=== PATIENT | female | born 1970 | race Caucasian/White ===

== ENCOUNTER 2018-08-14 10:39 | Emergency (ER) | payer SELFPAY ==
[~2018-08-14] VITALS: Ht 165.1 cm; Wt 88.9 kg
--- OUTSIDE RECORDS SUMMARY | 2018-08-14 10:41 | XMS REPORT | Clinical Summary ---
Author Author [facility] Address Unknown Phone Unavailable Care Team Providers Care Project Construction Assistant Manager Name Role Phone Sangita Mo MD PCP Allergies Comments Active Allergy Reactions Severity Noted Date Sulfa (Sulfonamide 03/19/2018 Antibiotics) Medications End Date Status Medication Sig Dispensed Refills Start Date Active dicyclomine (BENTYL) 10 TAKE 1 2 MG capsule CAPSULE BY 8 MOUTH THREE TIMES A DAY NEEDED Active Problems No known active problems Encounters Care Team Description Date Type Specialty Edmar Pavon MA Abnormal mammogram 04/07/2018 Orders Only Obstetrics and Gynecology Edmar Pavon MA Abnormal mammogram (Primary Dx) 04/07/2018 Orders Only Obstetrics and Gynecology Edmar Pavon MA Abnormal mammogram (Primary Dx) 04/07/2018 Orders Only Obstetrics and Gynecology Gracie Cifuentes MA 03/31/2018 Telephone Obstetrics and Gynecology Kenyatta Kowalski MD Pap smear, low-risk (Primary Dx); Screening mammogram, encounter for; Wellness examination 03/19/2018 Office Visit Obstetrics and Gynecology after 08/13/2017 Family History Medical History Relation Name Comments Lung cancer Father Breast cancer Maternal Aunt Maternal Great Aunt Hypertension Mother Hypertension Sister Relation Name Status Comments Father Maternal Aunt Mother Sister Social History Date Tobacco Use Types Packs/Day Years Used Never Smoker Smokeless Tobacco: Never Used Alcohol Use Drinks/Week oz/Week Comments Yes occasional Sex Assigned at Date Recorded Not on file Industry Job Start Date Occupation Not on file Not on file Not on file Travel End Travel History Travel Start No recent travel history available. Last Filed Vital Signs Time Taken Vital Sign Reading 03/19/2018 10:26 AM CDT Blood Pressure 131/89 03/19/2018 10:26 AM CDT Pulse 97 - Temperature - - Respiratory Rate - - Oxygen Saturation - - Inhaled Oxygen - Concentration 03/19/2018 10:26 AM CDT Weight 89.4 kg (197 lb 3.2 oz) 03/19/2018 10:26 AM CDT Height 165.1 cm (5' 5") 03/19/2018 10:26 AM CDT Body Mass Index 32.82 Plan of Treatment Health Maintenance Due Date Last Done Comments INFLUENZA VACCINE 03/04/2018 CERVICAL CANCER SCREENING 03/19/2021 03/19/2018 Procedures Comments Procedure Name Priority Date/Time Associated Diagnosis THINPREP TIS PAP REFLEX Routine 03/19/2018 Pap smear, low-risk HPV MRNA E6/E7 10:36 AM CDT after 08/13/2017 Results * THINPREP TIS PAP REFLEX HPV mRNA E6/E7 (03/19/2018 10:36 AM CDT) Clinical information None given [facility] [place] Date of last menstrual NONE GIVEN [facility] period [place] Prev. pap: NONE GIVEN [facility] [place] Prev. bx: NONE GIVEN [facility] [place] Source Comment: Cervix, Endocervix [facility] [place] Statement of adequacy Comment: [facility] Satisfactory for evaluation. [place] Endocervical/transformation zone component present. Age and/or menstrual status not provided Interpretation/result: Comment: Negative for [facility] intraepithelial lesion or [place] malignancy. Comment Comment: [facility] This Pap test has been [place] evaluated with computer assisted technology. Trim Attacher Comment: [facility] KXJ, CT(ASCP) [place] CT screening location: [place] [id number] Comment Comment: [facility] EXPLANATORY NOTE: [place] The Pap is a screening test for cervical cancer. It is not a diagnostic test and is subject to false negative and false positive results. It is most reliable when a satisfactory sample, regularly obtained, is submitted with relevant clinical findings and history, and when the Pap result is evaluated along with historic and current clinical information. Specimen Cervical Resulting Agency Comment Performing Organization Information: Site ID: [id number] Name: [facility] [place] Address: [address] [place] [id number] Director: Angie Stokes Performing Organization Address City/State/Zipcode Phone Number ELIZABETH [facility] [place] [phone] after 08/13/2017 Advance Directives Patient has advance care planning documents on file. For more information, ana curtis contact: Jim Ellis [id number] [place] [address]
[2018-08-14] MEDS ORDERED: LORAZEPAM 1 MG TAB PO ONE (11:00)
[2018-08-14 12:17] LABS: PREGNANCY TEST, URINE NEGATIVE (NEGATIVE)
[2018-08-14 12:18] LABS: BILIRUBIN,URINE NEGATIVE (NEGATIVE); CLARITY,URINE CLEAR (CLEAR); COLOR,URINE YELLOW (YELLOW); KETONES,URINE NEGATIVE (NEGATIVE); LEUKOCYTE ESTERASE ,URINE NEGATIVE (NEGATIVE); NITRITE,URINE NEGATIVE (NEGATIVE); PROTEIN,URINE DIPSTICK NEGATIVE (NEGATIVE); URINE UROBILINOGEN 0.2 mg/dL (0.2 - 1)
[2018-08-14 13:25] LABS: BACTERIA,URINE RARE /HPF; EPITHELIAL CELLS,URINE RARE /LPF; RBC,URINE 0-5 /HPF (0-5); WBC,URINE (MAN) 0-5 /HPF (0-5)
== END 2018-08-14 13:35 | disposition home or self-care (01) ==
LOC: ER 10:39
DX: F41.1 Generalized anxiety disorder (principal); J45.909 Unspecified asthma, uncomplicated; Z87.19 Personal history of other diseases of the digestive system
CPT/HCPCS: 81001; 81025; 87086; 99283